=== PATIENT | female | born 1950 | race Caucasian/White ===

== ENCOUNTER 2017-07-13 20:53 | Inpatient (IN) | END 2017-07-21 17:47 | disposition home or self-care (01) | DRG 841 ==

== ENCOUNTER 2017-08-10 18:17 | Inpatient (IN) | END 2017-08-15 16:25 | disposition home health service (06) | DRG 847 ==

== ENCOUNTER 2017-08-31 15:43 | Emergency (ER) | END 2017-09-01 01:38 | disposition home or self-care (01) ==

== ENCOUNTER 2017-11-17 00:41 | Inpatient (IN) | END 2017-11-20 15:45 | disposition home or self-care (01) | DRG 809 ==

== ENCOUNTER 2018-01-05 22:49 | Inpatient (IN) | END 2018-02-07 21:30 | disposition short-term general hospital (02) | DRG 871 ==